=== PATIENT | female | born 1970 | race Caucasian/White ===

== ENCOUNTER 2020-08-13 10:17 | Emergency (ER) | payer BC, SELFPAY ==
[2020-08-13 11:02] VITALS: BP 151/85; PULSE 86; RESP 18; TEMP 36.8; O2SAT 100; BMI 26.4
--- NOTE | 2020-08-13 11:06 | HMH.EDUTC ---
[facility] Disposition Clinical Impression: Viral upper respiratory infection, Close exposure to COVID-19 virus Disposition: Home, Self-Care Condition on Discharge: Good Instructions: Sore Throat, Preventing the Spread of Coronavirus Discharge Instructions Additional Instructions: *Monitor Temp, Over the counter Motrin or Tylenol as directed/as needed Tylenol every 4 hours and Motrin every 6 hours (as long as your family doctor has told you that you can take it) for fever or pain. and straight to ER if unable to lower temp less than 101.0 after medication given *Warm salt water gargles may help to soothe the throat *Throat Lozenges *Warm fluids like tea with honey may help to soothe the throat *Sleep elevated *Humidifier/Vaporizer Your throat swab was sent for culture. Those results are typically sent to your primary care. Be sure to follow up in 2-3 days with your family doctor/primary care physician if no improvement so they can review those result and treat if necessary. If you don?t have a primary care doctor, I recommend you get one but in the mean time, you will have to return to a walk in clinic Follow up IMMEDIATELY for new or worsening symptoms or no Noticeable improvement over the next 48-72 hours. 911 for difficulty breathing or swallowing You were tested for today for COVID19 your test result should be back in the next 24-48 hours, you may call to the [facility] to see if your test results are back in the next 48 hours [phone] [facility] hours are 9am-9pm You was given a handout with instructions for Self Quarantine and Self isolation for while you wait on test results and what to do if they are positive If you are positive the Health Dept will be contacting you also Referrals: PCP,No [Primary Care Provider] - As needed Forms: Work/School Release Time of Disposition: 11:09 Medical Decision Making - Alex Inquiry Pt receiving controlled substance: Bhavya Johnson was queried for this patient: No Vital Signs: 08/13/20 11:02 08/13/20 11:10 Temperature 98.2 F 98.2 F Temperature Source Oral Pulse Rate 86 Pulse Rate [Left] 86 Respiratory Rate 18 18 Blood Pressure 151/85 H Blood Pressure [Right Arm] 151/85 H Blood Pressure Mean [Right Arm] 107 Blood Pressure Source [Right Arm] Automatic Cuff Blood Pressure Position [Right Arm] Sitting 02 Sat by Pulse Oximetry 100 Oxygen Delivery Method Room Air - Lab Data Lab results reviewed: Yes: I reviewed the patient's lab results. Orders (Tests/Meds): ORDERS Category Date Time Status Covid-19 Nasal PCR Sendout [facility] 08/13/20 11:00 Received [facility] HPI - General Stated complaint: exposure and symtoms Time Seen by Provider: 08/13/20 11:06 Mode of Arrival: Ambulatory Source of Information: Patient Limitations: No Limitations Description of Symptoms (Recalled from Triage Doc. by RN): Covid testing-direct exposure HEENT Symptoms (Recalled from RN notes): Yes Resp Symptoms (Recalled from RN notes): Yes Skin Symptoms (Recalled from RN notes): No MS Symptoms (Recalled from RN notes): No Functional Status (Recalled from RN notes): wnl - History of Present Illness Provider Complaint: Patient state that she recently around someone that tested positive for COVID States that she has since started having sore throat, body aches and cough State that she wanted to get tested for COVID - Related Data Allergies Allergy/AdvReac Type Severity Reaction Status Date / Time codeine Allergy Intermediate Dizziness Verified 08/13/20 11:07 - Worker's Comp Is this a Worker's Comp case?: No Is this an H Worker's Comp?: No Is this a Patrice Worker's Comp?: No [facility] History - Hepatitis A Screen Drug use history?: No High risk sexual behaviors?: No History of sexually transmitted infection?: No Currently employed?: No Childcare worker?: No Do you have indoor plumbing?: Yes Do you have electricity?: Yes Attestation statement:: This patient has been screened for
[2020-08-13 11:10] VITALS: BP 151/85; PULSE 86; RESP 18; TEMP 36.8; O2SAT 100
[2020-08-13 19:24] LABS: UTC Strep Screen (Rapid) Negative (Negative)
[2020-08-14 12:46] LABS: Covid-19 Nasal PCR Sendout Lex Not Detected
== END 2020-08-13 11:12 | disposition home or self-care (01) ==
PROVIDERS: Emergency Provider Nurse Practitioner
DX: Z20.828 Contact with and (suspected) exposure to other viral communicable diseases (principal); J06.9 Acute upper respiratory infection, unspecified; Z88.5 Allergy status to narcotic agent
CPT/HCPCS: 87880; 99201; U0004